=== PATIENT | male | born 2005 | race Caucasian/White ===

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

== ENCOUNTER 2025-06-30 04:56 | Emergency (ER) | payer MEDICAID, SELFPAY ==
--- NOTE | ~2025-06-30 | CT_ITS ---
EXAMINATION: CT ABDOMEN AND PELVIS WITH CONTRAST CLINICAL INFORMATION: Abdominal pain and vomiting. COMPARISON: None available. TECHNIQUE: Multidetector volumetric images were obtained from the superior aspect of the liver through the pubic symphysis following administration 85 mL of Omnipaque 350 intravenous contrast. Sagittal and coronal reformatted images were obtained on the technologist's workstation. Oral contrast: No This CT examination was performed using dose optimization techniques as appropriate, variously including the following: *Automated exposure control *Adjustment of mA and/or kV according to patient size (this includes techniques or standardized protocols for targeted exams where dose is matched to indication/reason for exam; i.e. extremities or head) *Use of iterative reconstruction technique FINDINGS: LUNG BASES: The visualized lung bases are unremarkable. LIVER, GALLBLADDER, AND BILIARY TREE: The liver is normal in size, shape, and diffusely decreased in attenuation. No focal hepatic lesion or biliary ductal dilatation is present. The gallbladder is unremarkable with no evidence of radiopaque gallstones, gallbladder wall thickening, or obvious pericholecystic inflammatory changes. PANCREAS: Unremarkable. SPLEEN: Unremarkable. ADRENAL GLANDS: Unremarkable. KIDNEYS AND URETERS: The kidneys are normal in size, shape, and attenuation. No hydronephrosis, hydroureter, or calculi seen. No perinephric stranding. BLADDER: Unremarkable. GASTROINTESTINAL TRACT: There is minimal wall thickening of the terminal ileum leading into the ileocecal valve. There is associated minimal fat stranding in the abutting mesenteric fat. Remainder of the small bowel appears normal. The colon is normal in caliber, course, and appearance. The rectum is normal. The appendix is normal. The stomach, and duodenum appear normal. PERITONEUM: There is no ascites or free air. ABDOMINAL WALL: Morbid obesity. There is no significant hernia or mass. LYMPH NODES: There are no abnormal or pathologic lymph nodes present. VASCULAR: Unremarkable. PELVIC VISCERA: The prostate and seminal vesicles are unremarkable. OSSEOUS STRUCTURES: There is no suspicious lytic or blastic bone lesion. CT/CT abdomen pelvis w IV con IMPRESSION: 1. Mild inflammation of the terminal ileum consistent with mild enteritis. This could be infectious or inflammatory in etiology. 2. Diffuse fatty infiltration of the liver. 3. Remainder of the examination is normal. Electronically signed by: Stalin Luz MD 06/30/2025 10:19 AM [facility]
[2025-06-30 05:00] VITALS: BP 134/81; PULSE 113; RESP 20; TEMP 36.8; O2SAT 96; BMI 59.2
--- OUTSIDE RECORDS SUMMARY | 2025-06-30 05:32 | XMS_ITS | Clinical Summary ---
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 Role Phone Ana Maria Shore MD Primary Care Provide r Allergies No known active allergies Medications hydrocortisone 2.5 % creamIndication s:Flexural eczema APPLY 1 APPLICATION BY TOPICAL ROUTE 2 TIMES PER DAY TO RASH 56 g 1 3 Active Active Problems Problem Noted Date Diagnosed Date Abnormal thyroid function test 02/27/2023 Dyslipidemia 02/27/2023 Hyperinsulinism 02/27/2023 Obesity, pediatric 03/23/2022 Abnormal vision 07/19/2017 Flexural eczema 11/16/2015 Immunizations Immunization Administration Dates Next Due DTaP 07/13/2009, 6,2005,07/11 DTaP / Hep B / IPV 2005 HPV 9-Valent 11/16/2015,07/15/2015,05/11/2015 Hep A, ped/adol, 2 dose 05/11/2015,12/30/2013 Hep B, Adolescent or Pediatric 6,2005,2005,05/09 Hib (HbOC) 08/18/2006, 6,2005,07/11 IPV 07/13/2009,2005,2005 Influenza injectable quadriv alent preservative free 10/15/2020 Influenza, IIV3, injectable 05/28/2008, 7,08/18/2006 MMR 07/13/2009,2006 Meningococcal MCV4P ACYW-135 12/21/2021,06/29/20 16 Pneumococcal Conjugate PCV 7 08/18/2006, 2005,2005,07/11 Tdap 06/29/2016 Varicella 07/13/2009,2006 Family History Medical History Relation Name Comments Depression Father Diabetes Father Hypertension Father Prostate cancer Paternal Grandfather Diabetes Paternal Grandmother Hypertension Paternal Grandmother Relation Name Status Comments Father Paternal Grandfather Paternal Grandmother Social History Tobacco Use Types Packs/Day Years Used Date Smoking Tobacco: Never Smokeless Tobacco: Never Depression Answer Date Recorded Patient Health Questionnaire-9 Score 2 02/27/2023 Housing Stability Answer Date Recorded What is your housing situation today? I have jozef pickering 07/03/[address] you li ve. Do you have problems with any of the following? None of the above 07/03/2023 Food Insecurity Answer Date Recorded Within the past 12 months, y ou worried that your food would run out before you got money to buy more: Never True 07/03/2023 Within the past 12 months,th e food you bought just didn't last and you didn't have enough money to get more: Never True 01/2023 Transportation Answer Date Recorded In the past 12 months, has l ack of transportation kept you from medical appts, meetings, work or from getting things needed for daily living? No 07/03/2023 Utilities Answer Date Recorded In the past 12 months, has t he electric, gas, oil or water company threatened to shut off services in your home? No 07/03/2023 Depression Answer Date Recorded Patient Health Questionnaire-2 Score 0 02/27/2023 Sex and Gender Information Value Date Recorded Sex Assigned at Male 06/27/2022 10:18 AM EDT Legal Sex Male 10:18 AM EDT Gender Identity Male 06/27/2022 10:18 AM EDT Sexual Orientation Don't know 06/27/2022 10 :18 AM EDT Last Filed Vital Signs Vital Sign Reading Time Taken Comments Blood Pressure 138/96 02/27/2023 9:05 AM EDT Pulse 68 02/27/2023 9:05 AM EDT Temperature - - Respiratory Rate 18 02/27/2023 9:05 AM EDT Oxygen Saturation - - Inhaled Oxygen Concentration - - Weight 164 kg (362 lb) 02/27/2023 9:05 AM EDT Height 146.7 cm (4' 9.75 ) 02/27/2023 9:05 AM ED T Body Mass Index 76.31 02/27/2023 9:05 AM EDT Plan of Treatment Health Maintenance Due Date Last Done Comments Chlamydia and Gonorrhea Screening 2005 HIV Screening 2005 Disability Screening 2005 Alcohol/Substance Use Screening 2017 Family Planning (PISQ) 2020 Meningococcal B Vaccine (1 of 2 - Standard) 2021 Hepatitis C Screening 2023 SDOH Screening 02/21/2024 02/20/2023 Depression Screening 02/28/2024 02/27/2023, 02/28/20 23 Tobacco Screening 04/18/2024 04/18/2023 COVID-19 Vaccine ( season) 2025 Influenza Vaccine (#1) 2025 , 05/28/2008, 09/18/2006, Additional history exists DTaP/Tdap/Td Vaccines (7 - Td or Tdap) 06/29/2026 06/29/2016, 07/13/2009, 08/18/2006, Additional history exists Lipid Panel 02/28/2028 02/27/2023, /01/2022, 10/15/2020 Zoster Vaccines (1 of 2) 2055 RSV Patients and Patients Aged 60 years or older (1 - 1-dose 75+ series) 2080 Hepatitis B Vaccines Completed 2005, 2005, 2005, Additional history exists HIB Vaccines Completed 08/18/2006, 10/26, 2005, Additional history exists Pneumococcal Vaccine: Pediatrics (0 to 5 Years) and At-Risk Patients (6 to 49) Years Aged Out 08/18/2006, 2005, 2005, Additional history exists No longer eligible based on patient's age to complete this topic IPV Vaccines Completed 07/13/2009, 10/26, 2005, Additional history exists Hepatitis A Vaccines Completed 05/11/2015, 12/31/19 14 HPV Vaccines Completed 11/16/2015, 06/28, 05/11/2015 Meningococcal Vaccine Completed 12/21/2021, 016 RSV under 20 months Aged Out No longe r eligible based on patient's age to complete this topic Rotavirus Vaccines Aged Out No longer eligible based on patient's age to complete this topic Procedures Procedure Name Priority Date/Time Associated Diagnosis Comments LIPID PANEL, STANDARD Routine 02/27/2023 9:44 AM EDT Health check for child over 28 days old from Last 3 Months or Most Recently Relevant to Health Maintenance Results * (ABNORMAL) Lipid Panel, Standard (02/27/2023 9:44 AM EDT) Cholesterol, Total 165 <170 mg/dL [facility] HDL Cholesterol 36(L) >45 mg/dL [facility] Triglycerides 131(H) <90 mg/dL [facility] LDL Cholesterol 106 <110 mg/dL (calc) [facility] Comment: LDL-C is now calculated using the Bobby-Stephen calculation, which is a validated novel method providing better accuracy than the Friedewald equation in the estimation of LDL-C. Bobby SS et al. DELMA. 2013;310(19): 2625-7581 (http://education.GroupTie/faq/AZB948) Chol/HDLC Ratio 4.6 <5.0 (calc) [facility] Non-HDL Cholesterol 129(H) <120 mg/dL (calc) [facility] Comment: For patients with diabetes plus 1 major ASCVD risk factor, treating to a non-HDL-C goal of <100 mg/dL (LDL-C of <70 mg/dL) is considered a therapeutic option. 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
[2025-06-30 05:52] LABS: Hematocrit 43.9 % (42.0-52.0); Hemoglobin 14.1 g/dl (14.0-18.0); Imm Gran Abs Auto 0.06 X10*3/uL (0.00-0.03); Imm Gran Pct Auto 0.4 % (0.0-0.4); Lymphocytes Absolute Auto 1.8 X10*3/uL (1.2-4.9); MANUAL DIFF FLAG NO; Mean Corpuscular HGB Conc 32.1 g/dl (31.0-36.0); Mean Corpuscular Hemoglobin 26.9 pg (27.0-33.0); Mean Corpuscular Volume 83.8 fL (80.0-98.0); NRBC Abs Auto 0.000 X10*3/uL (0.0-0.012); NRBC Pct Auto 0.0 /100WBC (0.0-0.2); Platelet Count 391 X10*3/uL (160-400); Red Blood Count 5.24 X10*6/uL (4.60-5.80); White Blood Count 16.4 X10*3/uL (4.8-10.8)
[2025-06-30 05:53] LABS: Appearance Urine Clear; Glucose Urine UA Negative (Negative); PH 5.0 (5.0-9.0); Specific Gravity - Urine 1.025 (1.005-1.025); UMIC TRIGGER UACC YES
[2025-06-30 06:05] LABS: COVID-19 Test Negative (Negative); IDNOW Serial# 08D9AD1C; IDNOW Serial# 58CA691E; Influenza B2 Negative (Negative)
[2025-06-30 06:07] LABS: Alanine Aminotransferase 37 U/L (0-40); Albumin Level 4.7 g/dL (3.5-5.0); Alkaline Phosphatase 81 U/L (39-117); Anion Gap 13 (12-20); Aspartate Amino Transferase 32 U/L (5-37); Blood Urea Nitrogen 11 mg/dL (9-16); Calcium 9.6 mg/dL (8.4-10.2); Carbon Dioxide 22 mmol/L (22-29); Chloride 107 mmol/L (96-108); Creatinine Clr Calc Pharmacy 278.3; Estimated Glomerular Filt Rate > 60; Lipase 10 U/L (8-78); Potassium 4.1 mmol/L (3.3-5.1); Sodium 138 mmol/L (135-145); Total Protein 8.3 g/dL (6.5-8.0)
--- NOTE | 2025-06-30 06:47 | PC.NURSE ---
unable to obtain IV, multiple RN attempts. MD at bedside for U/S IV
--- NOTE | 2025-06-30 06:55 | PC.NURSE ---
U/S R upper arm 20g
[2025-06-30] MEDS: Lactated Ringers 1,000 ML 999 ML IV (07:13)
[2025-06-30 07:25] VITALS: BP 130/80; PULSE 102; RESP 16; O2SAT 98
--- NOTE | 2025-06-30 07:27 | PC.NURSE ---
Report taken from previous rn, pt is sitting upright in bed in no distress. Pt is not a fall risk, call chi in reach, awaiting ct.
--- NOTE | 2025-06-30 07:55 | ED.ABDPAIN ---
HPI - Abdominal Pain General Chief Complaint: Abdominal Pain Stated Complaint: headache, diarrhea, vomiting Time Seen by Provider: 06/30/25 05:03 Source: patient and family Mode of arrival: ambulatory Limitations: no limitations History of Present Illness ED Provider: Dr. Nelida Heredia HPI narrative: 20-year-old male with no significant past medical history presenting with upper abdominal pain that is been ongoing for the last 2 years and intermittent over time but worsening over the last 24 hours. States that he ate fried chicken and Spanish fries made by his mother yesterday and when he went to bed last night, the pain became worse. He admits that his sleep cycle is altered, sleeping during the day and he actually ate dinner around 12 noon, fell asleep around 3 p.m. and was awake by 1 a.m.. Noted the pain when he woke from sleep. Describes pain as a sharp stabbing pain in the upper abdomen that is currently gone. Describes associated nausea, vomiting and 2 episodes of diarrhea. No reported fever. No questionable food intake otherwise. No one else is sick at home. Admits he has had this issue for years. BMI of 60. Related Data Previous Rx's ?Medication ?Instructions ?Recorded dicyclomine 20 mg tablet 20 mg PO TID #10 tabs 06/30/25 ondansetron 4 mg disintegrating 4 mg PO Q8H PRN nausea and 06/30/25 tablet vomiting #10 tabs ondansetron 4 mg disintegrating 4 mg PO Q8H PRN nausea and 06/30/25 tablet vomiting #20 tabs Allergies Allergy/AdvReac Type Severity Reaction Status Date / Time No Known Allergies (NKA) Allergy Unknown NONE Verified 06/30/25 05:11 Review of Systems Review of Systems as per HPI, full review of systems performed and negative but for the above mentioned pertinent positives and negatives. [facility] Social History Social History Advance Directives: No Advance Directives Information Provided: No Physical Exam ED Exam Exam: GENERAL: Well-Appearing, conversant, no acute distress. SKIN: Normal skin color for ethnicity, warm, dry, no rashes noted. HEENT:? Normocephalic, atraumatic, no stridor, posterior oropharynx nonerythematous, dentition intact, EOMI. NECK: Soft, supple, full ROM, midline structures nontender, no step-offs, no deformities, no lymphadenopathy. CHEST: Heart regular rate and rhythm, no murmurs, symmetric chest rise and fall. PULMONARY: Clear to auscultation bilaterally, no labored breathing, no wheezes/rhales/rhonchi. ABDOMINAL: Soft, protuberant, nontender, quiet bowel sounds in all quadrants. : Deferred. MUSCULOSKELETAL: Normal tone, full range of motion, no deformities, no peripheral edema. NEURO: Alert and oriented x3, CN II through XII intact, equal strength and sensation bilateral upper and lower extremities, no focal neurologic deficits.? PSYCHIATRIC: Normal affect, fluid speech, good eye contact and appropriate demeanor. Vital Signs: Vital Signs - 24 hr 06/30/25 05:00 06/30/25 07:25 06/30/25 08:00 Temperature 98.2 F Pulse Rate 113 H 102 H 80 Respiratory Rate 20 16 20 Blood Pressure 134/81 130/80 138/82 Pulse Oximetry 96 98 96 Oxygen Delivery Method Room Air Room Air Room Air 06/30/25 10:00 Temperature 98.2 F Pulse Rate 78 Respiratory Rate 20 Blood Pressure 134/80 Pulse Oximetry 96 Oxygen Delivery Method Room Air BMI result Body Mass Index 59.2 Procedures EJ/Peripheral Line Arm R: Skin Cleansed in Sterile Fashion: Yes Size (gauge): 20 IV Secured and Dressing Applied: Yes Patient Tolerated Procedure: well and no complications Course Course Course Narrative: Latosha Vazquez, 06/30/25 1027 Labs reassuring, does have mild white count likely due to vomiting, chemistries are normal, urine is normal viral, CT scan consistent with enteritis at this time will DC home with bland diet and Zofran with return precautions Medical Decision Making Medical Decision Making MDM Narrative: This patient presents today with a chief complaint of abdominal pain, nausea, vomiting, diarrhea. Differential diagnosis for this patient is broad. It includes appendicitis, cholecystitis, gastroenteritis, bowel obstruction, peptic ulcer disease, pyelonephritis, vascular pathology, among many others. A broad-based workup based on history and physical examination was obtained. Clinical picture favors gallbladder pathology however, the patient has an extremely large body habitus and I think it would be difficult to see any gallbladder pathology on bedside ultrasound. Given his elevated white blood cell count, generalized abdominal pain, diarrhea and vomiting, we will obtain a CT to evaluate this further. Placed an ultrasound-guided IV. Medicated with Toradol, Zofran, IV fluids.. 8:02 AM 06/30/2025 (Dr. Nelida Heredia, D.O.) patient feeling improved after medications and about half of the IV fluid at this time. Awaiting CT and final disposition. Signing out to oncoming provider. Differential Diagnosis Differential Diagnoses: The differential diagnosis associated with the presentation includes (As above) Admission/Observation Consideration of admission/observation: Escalation of care including admission/observation considered Lab Data MDM Lab Attestation statement: I reviewed the patient's lab results. 06/30/25 05:43 06/30/25 05:43 Labs: Lab Results 06/30/25 Range/Units 05:43 WBC 16.4 H (4.8-10.8) X10*3/uL RBC 5.24 (4.60-5.80) X10*6/uL Hgb 14.1 (14.0-18.0) g/dl Hct 43.9 (42.0-52.0) % MCV 83.8 (80.0-98.0) fL MCH 26.9 L (27.0-33.0) pg MCHC 32.1 (31.0-36.0) g/dl RDW 14.0 (11.0-16.0) % Plt Count 391 (160-400) X10*3/uL MPV 8.5 L (9.4-12.4) fL Immature Gran % (Auto) 0.4 (0.0-0.4) % Neut % (Auto) 81.5 H (45-73) % Lymph % (Auto) 11.0 L (20-40) % [place] % (Auto) 5.6 (2-11) % Eos % (Auto) 1.1 (0-4) % Baso % (Auto) 0.4 (0-2) % Lymph # (Auto) 1.8 (1.2-4.9) X10*3/uL [place] # (Auto) 0.9 (0.1-1.2) X10*3/uL Eos # (Auto) 0.2 (0.0-0.4) X10*3/uL Baso # (Auto) 0.1 (0.0-0.2) X10*3/uL Abs Immat Gran (auto) 0.06 H (0.00-0.03) X10*3/uL Absolute Neuts (auto) 13.4 H (2.0-8.3) x10*3/uL Absolute Nucleated RBC 0.000 (0.0-0.012) X10*3/uL Nucleated RBC % (auto) 0.0 (0.0-0.2) /100WBC Sodium 138 (135-145) mmol/L Potassium 4.1 (3.3-5.1) mmol/L Chloride 107 (96-108) mmol/L Carbon Dioxide 22 (22-29) mmol/L Anion Gap 13 (12-20) BUN 11 (9-16) mg/dL Creatinine 0.69 (0.5-1.4) mg/dL Estim Creat Clear Calc 278.3 Estimated GFR > 60 Random Glucose 89 (60-115) mg/dL Calcium 9.6 (8.4-10.2) mg/dL Total Bilirubin 0.4 (0.0-1.0) mg/dL AST 32 (5-37) U/L ALT 37 (0-40) U/L Alkaline Phosphatase 81 (39-117) U/L Total Protein 8.3 H (6.5-8.0) g/dL Albumin 4.7 (3.5-5.0) g/dL Lipase 10 (8-78) U/L Urine Color Yellow Urine Appearance Clear Urine pH 5.0 (5.0-9.0) Ur Specific Boomer 1.025 (1.005-1.025) Urine Protein Negative (Neg-Trace) mg/dL Urine Glucose (UA) Negative (Negative) mg/dL Urine Ketones Negative (Negative) mg/dL Urine Blood Trace H (Negative) Urine Nitrite Negative (Negative) Ur Leukocyte Esterase Negative (Negative) Urine RBC 0-2 (0-2) /HPF Urine WBC 0-5 (0-5) /HPF Ur Squamous Epith Cells 0-2 (0-2) /HPF Urine Bacteria None Seen (None Seen) Hyaline Casts 0-2 (0-2) /LPF COVID-19 (ANGELA) Negative (Negative) COVID-19 Clin Com See Note Influenza Type A (MOISES) Negative (Negative) Influenza Type B (MOISES) Negative (Negative) Influenza A & B Note See Note Independent Historian Clinical information obtained from an independent historian. History obtained from or confirmed by: Parent (Dad) External Record Review External record reviewed: Inpatient record Prescription Management I considered prescription management with: Pain Medication Chronic Conditions Patient?s care impacted by: Other (Morbid obesity, BMI of 60) Social Determinants Patient?s care significantly limited by Social Determinants of Health including: Other Social Determinant of Health Medications Administered Discontinued Medications Generic Name Dose Route Start Last Admin Trade Name Fresera PRN Reason Stop Dose Admin Lactated Ringer's 1,000 mls @ 999 mls/hr 06/30/25 05:55 06/30/25 07:13 Lr IV 06/30/25 06:55 999 mls/hr .Q1H1M ONE Administration Iohexol 100 ml 06/30/25 10:01 06/30/25 10:01 Iohexol 350 Mg/Ml 100 Ml Infus..Btl IV 06/30/25 10:02 85 ml ONCE ONE Administration Ketorolac Tromethamine 15 mg 06/30/25 05:55 06/30/25 07:10 Ketorolac Tromethamine 15 Mg/Ml Vial IVPUSH 06/30/25 05:56 15 mg ONCE ONE Administration Ondansetron HCl 4 mg 06/30/25 05:55 06/30/25 07:11 Ondansetron Hcl 4 Mg/2 Ml Vial IVPUSH 06/30/25 05:56 4 mg ONCE ONE Administration Discharge Plan Discharge Clinical Impression: Abdominal pain, chronic, epigastric, Nausea vomiting and diarrhea Leukocytosis Qualifiers: Leukocytosis type: unspecified Qualified Code(s): D72.829 - Elevated white blood cell count, unspecified Patient Disposition: Home, Self-Care Instructions: Acute Nausea and Vomiting (ED), Acute Diarrhea (ED), Acute Abdominal Pain (ED) Additional Instructions: At this time your liver panel your kidney function and your pancreas labs are normal, you are negative for COVID and flu. Your CT scan did show a fatty liver which is likely due to body weight in genetics, but there is no acute signs of infection or issues At this time we will treat you as if you have a viral infection, you were to eat a bland diet and drink plenty of fluids for the next 3 days Return for any worsening pain or inability to eat or drink, or any other concerns Prescriptions: New dicyclomine 20 mg tablet 20 mg PO TID Qty: 10 0RF ondansetron 4 mg tablet,disintegrating 4 mg PO Q8H PRN (Reason: nausea and vomiting) Qty: 10 0RF ondansetron 4 mg tablet,disintegrating 4 mg PO Q8H PRN (Reason: nausea and vomiting) Qty: 20 0RF Stand Alone Forms: Work/School Release Print Language: Kinyarwanda
[2025-06-30 08:00] VITALS: BP 138/82; PULSE 80; RESP 20; O2SAT 96
--- NOTE | 2025-06-30 09:56 | PC.NURSE ---
pt back from ct, in no distress
[2025-06-30 10:00] VITALS: BP 134/80; PULSE 78; RESP 20; TEMP 36.8; O2SAT 96
[2025-06-30] MEDS: iohexoL 350 MG/ML 100 ML INFUS..BTL IV (10:01)
[2025-06-30 10:59] VITALS: BP 130/78; PULSE 78; RESP 20; TEMP 36.8; O2SAT 96
== END 2025-06-30 11:00 | disposition home or self-care (01) ==
PROVIDERS: Emergency Provider Emergency Medicine
DX: R10.13 Epigastric pain (principal); R19.7 Diarrhea, unspecified; D72.829 Elevated white blood cell count, unspecified; Z68.43 Body mass index [BMI] 50.0-59.9, adult; Z79.899 Other long term (current) drug therapy
CPT/HCPCS: 74177; 80053; 81001; 83690; 85025; 87502; 87635; 96374; 96375; 99284; 99285; J1885; J2405; J7120; Q9967

== ENCOUNTER → 2025-06-30 05:55 | Outpatient (BNV) | payer MEDICAID, SELFPAY | PROVIDERS: Emergency Provider Emergency Medicine; Visit Provider Radiology Diagnostic Radiology | DX: R10.9 Unspecified abdominal pain (principal); R11.10 Vomiting, unspecified | CPT/HCPCS: 74177 ==